=== PATIENT | male | born 1975 | race Caucasian/White ===

== ENCOUNTER 2018-08-21 14:08 | Emergency (ER) | payer MEDICAID ==
[~2018-08-21] VITALS: Ht 170.2 cm; Wt 76.0 kg
[2018-08-21 14:29] VITALS: BP 156/95; PULSE 123; RESP 20; Ht 170.2 cm; Wt 76.0 kg
[2018-08-21] MEDS ORDERED: LORAZEPAM 2 MG INJ IM ONE (16:30)
[2018-08-21] MEDS ORDERED: LORAZEPAM 1 MG TAB PO ONE (17:30)
--- NOTE | 2018-08-21 19:01 | ERD ---
ER Documentation Chief Complaint Chief Complaint PANIC ATTACK WITH HEART PALPATIONS HPI History of Present Illness: Patient reports palpitations present since last night. Patient reports drinking and smoking meth at approximately 1 AM this morning. Patient reports he has smoked meth previously, and this is his third time; patient reports having to come to ER for similar complaint last time he used meth. Patient is speaking in clear sentences. Appears anxious. Patient denies chest pain, shortness of breath. At home pharmacological/nonpharmacological treatment for symptoms: Social History: Patient denies tobacco; positive alcohol, elicit drug use Allergies: NKDA Social Concerns: Denies ROS All systems reviewed and are negative except as per history of present illness. Allergies Allergies: Coded Allergies: No Known Allergy (Unverified , 08/21/18) PMhx/Soc Medical and Surgical Hx: pt denies Medical Hx Hx Psychiatric Problems: Yes (ANXIETY) Hx Miscellaneous Medical Probl: Yes (HIV +) Hx Alcohol Use: Yes (TWICE A WEEK) Hx Substance Use: Yes (METH) Hx Tobacco Use: No Smoking Status: Never smoker FmHx Family History: No diabetes, No coronary disease Physical Exam Vitals Vital Signs Date Temp Pulse Resp B/P (MAP) Pulse Ox O2 O2 Flow FiO2 Time Delivery Rate 08/21/18 99.6 123 20 156/95 96 14:29 (115) Physical Exam Const: mild acute distress, afebrile, patient appears anxious Head: Atraumatic Eyes: Normal Conjunctiva ENT: Normal External Ears, Nose and Mouth. Neck: Full range of motion. No meningismus. Resp: Clear to auscultation bilaterally Cardio: Regular rhythm, no murmurs; tachycardia at 120 Abd: Soft, non tender, non distended. No guarding, no masses, no rigidity Skin: No petechiae or rashes Back: No midline or flank tenderness Ext: No cyanosis, or edema Neur: Awake and alert x3, speaking in clear sentences, no focal deficits or facial asymmetry Psych: Normal Mood and Affect Results 24 hrs Current Medications Medications Dose Sig/Lalita Start Time Status Last (Trade) Ordered Route PRN Stop Time Admin Dose Reason Admin Lorazepam 1 mg ONCE ONCE 08/21/18 DC 08/21/18 (Ativan) IM 16:30 16:26 08/21/18 16:31 Lorazepam 1 mg ONCE ONCE 08/21/18 DC 08/21/18 (Ativan) PO 17:30 17:33 08/21/18 17:31 Procedures/MDM ED course includes a thorough examination and history. ED course includes EKG. ED course includes medications: IM administration of Ativan Low suspicion for life-threatening medical emergency or cardiac emergency that requires immediate intervention/hospitalization. Patient denies chest pain and shortness of breath. Otherwise healthy patient presenting with constellation of symptoms likely representing palpitations secondary to meth use as characterized by history, physical exam findings. UDS deferred due to patient admitting to using methamphetamines this morning. EKG: Rate/Rhythm: Sinus tachycardia rhythm; ventricular rate 115 QRS, ST, T-waves: No changes consistent w/ acute ischemia Impression: No evidence of ischemia or arrhythmia Patient reassessment: Patient reports feeling better. Heart rate 102 upon auscultation. reports no longer feeling anxious. Disposition given. Will give p.o. dose of Ativan before discharge. No respiratory distress, otherwise relatively well appearing and nontoxic. Patient educated on diagnoses, follow-up care, return precautions. Strict return precautions given for worsening condition; questions answered discharge. Patient educated on importance of compliance to stop meth use immediately. Disposition for discharge with followup in 2 days with PCP/clinic. Departure Diagnosis: Primary Impression: Palpitations Additional Impression: Methamphetamine use Condition: Stable Patient Instructions: Drug Abuse, Palpitations Referrals: COMMUNITY CLINICS YOU HAVE RECEIVED A MEDICAL SCREENING EXAM AND THE RESULTS INDICATE THAT YOU DO NOT HAVE A CONDITION THAT REQUIRES URGENT TREATMENT IN THE EMERGENCY DEPARTMENT. FURTHER EVALUATION AND TREATMENT OF YOUR CONDITION CAN WAIT UNTIL YOU ARE SEEN IN YOUR DOCTORS OFFICE WITHIN THE NEXT 1-2 DAYS. IT IS YOUR RESPONSIBILITY TO MAKE AN APPOINTMENT FOR FOLOW-UP CARE. IF YOU HAVE A PRIMARY DOCTOR --you should call your primary doctor and schedule an appointment IF YOU DO NOT HAVE A PRIMARY DOCTOR YOU CAN CALL OUR PHYSICIAN REFERRAL HOTLINE AT IF YOU CAN NOT AFFORD TO SEE A PHYSICIAN YOU CAN CHOSE FROM THE FOLLOWING [facility] CLINICS [facility] [address] [facility] [address] [facility]. [facility] [address] [facility] [address] [facility] [facility] [address] [facility] [facility] [address] [facility]. [facility] YOU HAVE RECEIVED A MEDICAL SCREENING EXAM AND THE RESULTS INDICATE THAT YOU DO NOT HAVE A CONDITION THAT REQUIRES URGENT TREATMENT IN THE EMERGENCY DEPARTMENT. FURTHER EVALUATION AND TREATMENT OF YOUR CONDITION CAN WAIT UNTIL YOU ARE SEEN IN YOUR DOCTORS OFFICE WITHIN THE NEXT 1-2 DAYS. IT IS YOUR RESPONSIBILITY TO MAKE AN APPOINTMENT FOR FOLOW-UP CARE. IF YOU HAVE A PRIMARY DOCTOR --you should call your primary doctor and schedule and appointment IF YOU DO NOT HAVE A PRIMARY DOCTOR YOU CAN CALL OUR PHYSICIAN REFERRAL HOTLINE AT . IF YOU CAN NOT AFFORD TO SEE A PHYSICIAN YOU CAN CHOSE FROM THE FOLLOWING [facility]: [facility] [address] [place] [address] [facility] [address] [place], [place] [id number] [place] [address] [address] [place] [address] Additional Instructions: Call your primary care doctor TOMORROW for an appointment during the next 2-3 days.See the doctor sooner or return here if your condition worsens before your appointment time. Do not use any meth; drug use can cause or serious harm. Return to ER if symptoms of chest pain, respiratory distress, shortness of breath, worsening palpitations, altered mental status, confused. RUBY TAPIA NP Aug 21, 2018 19:01
== END 2018-08-21 17:34 | disposition home or self-care (01) ==
LOC: FTE 14:08
DX: F15.90 Other stimulant use, unspecified, uncomplicated (principal); Z21 Asymptomatic human immunodeficiency virus [HIV] infection status
CPT/HCPCS: 93005; J2060; Z7610; 96372